=== PATIENT | female | born 1995 | race Caucasian/White ===

== ENCOUNTER 2020-02-21 13:08 | Emergency (ER) | payer OTHER ==
[~2020-02-21] VITALS: Ht 177.8 cm; Wt 70.0 kg
[2020-02-21 13:10] VITALS: BP 139/84
== END 2020-02-21 14:27 | disposition home or self-care (01) ==
LOC: ER 13:08
DX: G25.3 Myoclonus (principal); F41.9 Anxiety disorder, unspecified; F32.9 Major depressive disorder, single episode, unspecified
CPT/HCPCS: 99281